=== PATIENT | female | born 1950 | race Caucasian/White ===

== ENCOUNTER 2018-06-16 18:37 | Inpatient (IN) | END 2018-06-21 17:44 | disposition home health service (06) | DRG 291 ==

== ENCOUNTER 2018-08-01 15:05 | Inpatient (IN) | payer OTHER ==
[~2018-08-01] VITALS: Ht 154.4 cm; Wt 46.4 kg
[~2018-08-01 15:05] MED LIST: ACET650T5 PO; AMIO100T4 PO; ATOR40TA68 PO; FAMO40TA5 PO; FOLI0.8T2 PO; HEPA500021 IJ; METO-448 PO; ONDA4TAB13 PO; [UNRECOGNIZED DRUG - CODE] IV
[2018-08-02 12:35] VITALS: BP 136/74; PULSE 67; RESP 20
[2018-08-02 12:52] VITALS: PULSE 67
[2018-08-02] MEDS ORDERED: ACETAMINOPHEN 325 MG TAB PO PRN (14:00)
[2018-08-02] MEDS ORDERED: NACL 0.9% 3 ML SYG IV SCH (14:00)
[2018-08-02] MEDS ORDERED: ONDANSETRON 4 MG INJ IV PRN (14:00)
[2018-08-02] MEDS ORDERED: HYDROCODONE/APAP (5/325) TAB PO PRN (14:00)
--- NOTE | 2018-08-02 14:07 | HP ---
Date/Time of Note Date/Time of Note DATE: 08/02/18 TIME: 13:49 Assessment/Plan VTE Prophylaxis Pharmacological prophylaxis: heparin Lines/Catheters Central line still needed: Yes Assessment/Plan Assessment/Plan 67 yo woman with ESRD on HD, paroxysmal A fib, stroke in January 2018, CHF, presents with abdominal pain likely from chronic L renal hematoma. #L perinephric hematoma - From renal biopsy done in [facility] early 2017. - s/p embolization and percutaneous drainage with subsequent re-formation of hematoma. - Now associated with chronic abdominal pain. - Last CT Jun 2018 dimensions were 24.6 x 8.0 x 9.8 cm. Will attempt to read Colton's CT, if unsuccessful will repeat study here. - If hematoma is not significantly increased in size then draining it will likely do more harm than benefit in this frail woman with many other comorbidities. - I discussed with the patient and that this may be a chronic pain she must deal with. - Acetaminophen prn pain, norco prn breakthrough. #A fib, paroxysmal - Currently in normal sinus. - Rhythm controlled on amiodarone and metoprolol, will continue. - Will hold anticoag in the setting of hematoma. In normal sinus her risk of stroke is very low. #CVA - Cont statin. Holding aspirin for now; if hematoma is not increased in size then will resume. #ESRD on HD - Consulted renal for routine HD. No indications for urgent HD. #CHF - Continue metoprolol - No evidence of exacerbation. #Chronic anemia of chronic disease - Ferritin Jun 2018 was 1600 - Cont epogen per renal. DVT: SCDs GI: H2 suad HPI/ROS Admit Date/Time Admit Date/Time Aug 02, 2018 at 11:09 Hx of Present Illness Ms. Apodaca is a 67 yo woman with history of CVA, ESRD on HD, and paroxysmal A fib transferred here from [facility] for a renal hematoma. The patient's history starts with a renal biopsy done at [facility] earlier this year. After the biopsy she developed a L perinephric hematoma. She underwent embolization and drainage of the hematoma, but it recurred. Last procedure done on the hematoma was in January. She has chronic abdominal pain which seems to be related to this hematoma. She cannot quantify the nature of the pain. She reports it as mild to moderate. It is not affected by eating. It does worsen when she tries to stand and walk. She says she hasn't tried OTC medi cations for the pain and does not know which meds in the hospital work. She was hospitalized here at [facility] 06/16-. At that time the hematoma measured 24.6 x 8.0 x 9.8 cm. A decision was made that draining this chronic hematoma would likely do more harm than good. She was discharged and otherwise was doing well, although she did still have the above abdominal pain. She then presented to [facility] with the same abdominal pain. A CT was done there. There was only an axial view I could find on the CT where it measured 8.0 x 9.0; I could not measure the sagittal axis. Currently the patient appears well, no other complaints. Vitals are stable and she is in normal sinus. ROS 12 point review of systems done, negative except per HPI. PMH/Family/Social Past Medical History Stroke January 12, 2018. ESRD on HD Paroxysmal A fib CHF Coded Allergies: No Known Allergy (Unverified , 06/17/18) Past Surgical History Renal biopsy complicated by perinephric hematoma in 2018. Social History Alcohol Use: none Smoking Status: Never smoker Drug Use: none Exam/Review of Systems Vital Signs Vitals Vital Signs Date Temp Pulse Resp B/P (MAP) Pulse Ox O2 O2 Flow FiO2 Time Delivery Rate 08/02/18 67 12:52 08/02/18 98.7 20 136/74 98 Room Air 12:35 (94) Exam Exam Gen: Thin appearing elderly woman in no acute distress Eyes: PERRL, no icterus Neuro: CN 2-12 grossly intact. No facial droop. Moving all extremities spontaneously. HEENT: Moist mucous membranes, clear oropharynx Neck: No lymphadenopathy, supple. Chest: R chest permacath in place. Card: Regular rate and rhythm, no murmurs Pulm: Clear to auscultation bilaterally. Abd: L mid abdominal tenderness to palpation. Also L flank tenderness. Otherwise soft, nondistended. Old suprapubic surgical scar. Ext: No cyanosis/clubbing/edema. LATHA LOPEZ MD Aug 02, 2018 14:00
[2018-08-02 15:13] VITALS: BP 140/67; PULSE 77; RESP 20
--- NOTE | 2018-08-02 15:34 | NUR ---
Nutrition Consult: ESRD on HD. Per family HD 3x/wk, has had good appetite at home. She has good acceptance of nutrition supplement offered at HD center. [facility]. Per family ambulates with walker 1+ assist. Recommend Renal diet with Novasource Renal Qd. Will monitor PO intake, wt. and labs.
[2018-08-02 15:45] VITALS: Ht 154.4 cm; Wt 46.4 kg
[2018-08-02 16:40] VITALS: PULSE 82
--- NOTE | 2018-08-02 17:55 | NUR ---
EOSS Patient directly admitted from [facility]. Stable. Vitals signs stable. Denies pain. Ambulatory with assistance. Family at bedside. Patient's last dialysis was on 08/01. Dr. Gurvinder Perez notified about the dialysis days and last dialysis. All needs attended.
[2018-08-02 19:36] VITALS: BP 141/71; PULSE 85; RESP 18
[2018-08-02 20:00] VITALS: PULSE 87
[2018-08-02] MEDS: FAMOTIDINE 20 MG TAB PO SCH (20:14)
[2018-08-02] MEDS: ATORVASTATIN 40 MG TAB PO SCH (20:14)
[2018-08-02] MEDS: METOPROLOL 25 MG TAB PO SCH (20:15)
[2018-08-02] MEDS: HEPARIN 5,000 UNIT/1 ML VIAL SC SCH (21:24)
[2018-08-03] VITALS (26 sets, daily range): BP systolic 127–159; BP diastolic 61–96; PULSE 67–88; RESP 16–20
[2018-08-03] MEDS ORDERED: EPOETIN 4000 UNITS/1 ML INJ (ESRD) SC SCH (08:00)
[2018-08-03] MEDS ORDERED: MULTIVIT/CA CARB/B CMPLX/FA TAB PO SCH (09:00)
[2018-08-03] MEDS: AMIODARONE 200 MG TAB PO SCH (09:34)
[2018-08-03] MEDS: MULTIVIT/CA CARB/B CMPLX/FA TAB PO SCH (09:34)
[2018-08-03] MEDS: SEVELAMER CARBONATE 800 MG TABLET PO SCH ×4 (09:35→22:06)
[2018-08-03] MEDS: METOPROLOL 25 MG TAB PO SCH ×2 (09:35→22:06)
[2018-08-03] MEDS: HEPARIN 5,000 UNIT/1 ML VIAL SC SCH ×2 (09:52→22:11)
[2018-08-03] MEDS ORDERED: SOD CHLORIDE 0.9% 100 ML ONE (09:58)
[2018-08-03] MEDS ORDERED: IOHEXOL 300MG/ML 150 ML BTL ONE (09:58)
--- NOTE | 2018-08-03 10:32 | NUR ---
confirmation # for today 08/03: [id number]
--- NOTE | 2018-08-03 10:45 | NUR ---
Procedure Ordered:CT ABD/PEL W/CONTRAST Reason for Exam Today:PERINEPHRIC HEMATOMA Previous Exams: Allergies:NKDA Current Medications Taken: Glucophage ( ) Metformin ( ) Previous reaction to contrast media: Yes ( ) No (X ) : Yes ( ) No (X ) Asthma: Yes ( ) No ( X) Diabetes: Yes ( ) No (X ) Myeloma: Yes ( ) No (X ) Heart Disease: Yes ( ) No ( X) Cardiac Disease: Yes ( ) No (X ) Kidney Disease: Yes ( X) No ( ) Vascular Disease: Yes ( ) No ( X) Patient Teaching done: Yes ( ) No ( ) Senior Bioinformatics Specialist Used: Yes ( ) No ( ) Name of Senior Bioinformatics Specialist: Language Used: As part of the test requested by your doctor, contrast media may be injected into your vein while the x-rays are being taken. Occasionally, reactions from IV contrast may occur. The physician and staff of this hospital are trained to treat these reactions. Select the type of Contrast that will be given to patient: Isovue 300 ( ) Isovue 370 ( ) Visipaque ( ) Cystografin ( ) OMNIPAQUE 300 Gastrographin ( ) Redi-cat ( ) Volumen ( ) Amount of contrast to be given: 75CC IV ( X) PO ( ) Date given:08/03/18 Lab Values: BUN: 34 Creatinine:3.27 HD LATER TODAY Reason why contrast cannot be given: Location of patient pre-procedure:[facility] Location of patient post procedure:[facility] 525 PT TOLERATED IV CONTRAST INJECTION WELL
--- NOTE | 2018-08-03 11:01 | PN ---
Date/Time of Note Date/Time of Note DATE: 08/03/18 TIME: 10:58 Assessment/Plan VTE Prophylaxis Risk score (from Nsg)>0 risk: 3 SCD applied (from Nsg): No SCD contraindicated: other (not contraindicated) Pharmacological prophylaxis: heparin Lines/Catheters IV Catheter Type (from Nrs): Saline Lock Assessment/Plan Assessment/Plan 67 yo woman with ESRD on HD, paroxysmal A fib, stroke in January 2018, CHF, presents with abdominal pain likely from chronic L renal hematoma. #L perinephric hematoma - From renal biopsy done in [facility] early 2017. - s/p embolization and percutaneous drainage with subsequent re-formation of hematoma. - Now associated with chronic abdominal pain, although not requiring any analgesia this hospitalization. - Last CT Jun 2018 dimensions were 24.6 x 8.0 x 9.[address] today. - If hematoma is not significantly increased in size then draining it will likely do more harm than benefit in this frail woman with many other comorbidities. - Acetaminophen prn pain, norco prn breakthrough; not requiring #A fib, paroxysmal - Currently in normal sinus. - Rhythm controlled on amiodarone and metoprolol, will continue. - Will hold anticoag in the setting of hematoma. In normal sinus her risk of stroke is very low. #CVA - Cont statin. Holding aspirin for now; if hematoma is not increased in size then will resume. #ESRD on HD - HD today. #CHF - Continue metoprolol - No evidence of exacerbation. #Chronic anemia of chronic disease - Ferritin Jun 2018 was 1600 - Cont epogen per renal. DVT: heparin GI: H2 suad Result Diagram: 08/03/18 0541 08/03/18 0541 Results 24hrs Laboratory Tests Test 08/03/18 05:41 White Blood Count 9.7 # Red Blood Count 2.84 #L Hemoglobin 8.2 #L Hematocrit 26.6 #L Mean Corpuscular Volume 93.7 Mean Corpuscular Hemoglobin 28.9 L Mean Corpuscular Hemoglobin Concent 30.8 L Red Cell Distribution Width 17.0 H Platelet Count 216 Mean Platelet Volume 9.3 Immature Granulocytes % 0.400 Neutrophils % 65.5 Lymphocytes % 25.7 Monocytes % 5.3 Eosinophils % 2.6 Basophils % 0.5 Nucleated Red Blood Cells % 0.0 Immature Granulocytes # 0.040 H Neutrophils # 6.4 Lymphocytes # 2.5 Monocytes # 0.5 Eosinophils # 0.3 Basophils # 0.1 Nucleated Red Blood Cells # 0.0 Sodium Level 137 Potassium Level 4.5 Chloride Level 99 Carbon Dioxide Level 24 Anion Gap 14 H Blood Urea Nitrogen 34 H Creatinine 3.27 H Est Glomerular Filtrat Rate mL/min 14 L Glucose Level 92 Hemoglobin A1c 5.2 Calcium Level 8.6 Phosphorus Level 5.9 H Magnesium Level 2.0 Iron Level 60 Total Iron Binding Capacity 133 L Percent Iron Saturation 45 Total Bilirubin 0.4 Direct Bilirubin 0.00 Indirect Bilirubin 0.4 Aspartate Amino Transf (AST/SGOT) 18 Alanine Aminotransferase (ALT/SGPT) 14 Alkaline Phosphatase 137 H Total Protein 6.7 Albumin 2.8 L Globulin 3.90 H Albumin/Globulin Ratio 0.71 Subjective 24 Hr Interval Summary Free Text/Dictation Abdominal pain well controlled. It actually is more bothersome when she is lying flat and improves when she stands and walks around. Ambulated patient in room with help from . She reported some dizziness and has trouble with balance. But was able to support her weight. Exam/Review of Systems Vital Signs Vitals Vital Signs Date Temp Pulse Resp B/P (MAP) Pulse Ox O2 O2 Flow FiO2 Time Delivery Rate 08/03/18 82 08:00 08/03/18 98.0 16 157/73 91 07:23 (101) 08/02/18 Room Air 15:13 Intake and Output 08/02/18 08/02/18 08/03/18 1515:00 23:00 07:00 IntakeIntake Total 300 ml BalanceBalance 300 ml Exam Gen: Thin appearing elderly woman in no acute distress Eyes: PERRL, no icterus HEENT: Moist mucous membranes, clear oropharynx Neck: No lymphadenopathy, supple. Chest: R chest permacath in place. Card: Regular rate and rhythm, no murmurs Pulm: Clear to auscultation bilaterally. Abd: L mid abdominal tenderness to deep palpation. No L flank tenderness. Otherwise soft, nondistended. Old suprapubic surgical scar. Ext: No cyanosis/clubbing/edema. Medications Medications Current Medications IV Flush (NS 3 ml) 3 ml PER PROTOCOL IV ; Start 08/02/18 at 14:00 Ondansetron HCl (Zofran Inj) 4 mg Q6H PRN IV NAUSEA AND/OR VOMITING; Start 12/25/18 at 14:00 Acetaminophen (Tylenol Tab) 650 mg Q6H PRN PO PAIN; Start 08/02/18 at 14:00 Acetaminophen/ Hydrocodone Bitart (Stuart (5/325)) 1 tab Q6H PRN PO BREAKTHROUGH PAIN; Start 08/02/18 at 14:00 Heparin Sodium (Porcine) (Heparin (5000 Units/1ml)) 5,000 unit Q12 SC Last administered on 08/03/18 09:52; Admin Dose 5,000 UNIT; Start 08/02/18 at 21:00 Amiodarone HCl (Cordarone) 200 mg DAILY PO Last administered on 08/03/18 09:34; Admin Dose 200 MG; Start 08/03/18 at 09:00 Atorvastatin Calcium (Lipitor) 40 mg QHS PO Last administered on 08/02/18 20:14; Admin Dose 40 MG; Start 08/02/18 at 21:00 Famotidine (Pepcid) 20 mg HS PO Last administered on 08/02/18 20:14; Admin Dose 20 MG; Start 08/02/18 at 21:00 Multivit/Ca Carb/ B Cmplx/FA/Prenat (Radha-Dimitrios) 1 tab DAILY PO Last administered on 08/03/18 09:34; Admin Dose 1 TAB; Start 08/03/18 at 09:00 Metoprolol Tartrate (Lopressor) 25 mg BID PO Last administered on 08/03/18 09:35; Admin Dose 25 MG; Start 08/02/18 at 21:00 Epoetin Serjio (Epogen (Esrd)) 8,000 units AFTER DIALYSIS SC ; Start 08/03/18 at 08:00 Sevelamer Carbonate (Renvela) 800 mg WITH MEALS PO Last administered on 07/10 09:35; Admin Dose 800 MG; Start 08/03/18 at 07:55 LATHA LOPEZ MD Aug 03, 2018 11:01
--- NOTE | 2018-08-03 11:20 | CONS ---
DATE OF ADMISSION: 08/02/2018 DATE OF CONSULTATION: 08/03/2018 NEPHROLOGY CONSULTATION REASON FOR CONSULTATION: End-stage renal disease. REQUESTING PHYSICIAN: Dr. Lopez. HISTORY OF PRESENT ILLNESS: This is a 67-year-old woman with a past medical history of end-stage lorna al disease on dialysis Wednesday, Wednesday, Wednesday with access of a Perm-A-Cath, patient's primary neph rologist is , history of CVA, history of AFib, who was transferred from [facility] to [facility] for a renal hematoma. The patient's history starts in [facility] earlier in the year when she had a biopsy. The patient developed a left perinephric hematoma. She underwent an embolization and drainage of hematoma, but it recurred. The patient then developed chronic abdominal pain related to underlying hematoma. The patient was previously hospitalized at [facility] in June. At that time, the hematoma measured 24 x 9 cm. The patient was subsequently discharged, but then presented back to [facility] with abdominal pain and a repeat CT scan was done. The patient was then transferred to [facility] for contin ued care. Upon my evaluation of the patient at this time, she is currently describing abdominal pain. She mya es any fevers, chills, nausea, vomiting. PAST MEDICAL HISTORY: History of end-stage renal disease, history of a hematoma, history of AFib, hi story of anemia, history of CVA, CHF. PAST SURGICAL HISTORY: Status post Perm-A-Cath placement, status post renal biopsy. FAMILY HISTORY: No family history of kidney disease. SOCIAL HISTORY: Does not drink, smoke or do drugs. MEDICATIONS: The patient's medications have been reviewed. ALLERGIES: NO KNOWN DRUG ALLERGIES. REVIEW OF SYSTEMS: A 14-point review of systems was conducted. Pertinent positives stated in HPI, o therwise negative. PHYSICAL EXAMINATION: VITAL SIGNS: Blood pressure is 157/73, respirations 16, pulse 80, temperature 98.0. HEENT: Head is normocephalic. NECK: Supple. HEART: Regular rate. LUNGS: Show diminished breath sounds at the base. ABDOMEN: The patient does have tenderness to palpation and left flank tenderness, CVA tenderness. EXTREMITIES: Negative for clubbing, cyanosis, no edema. DERMATOLOGIC: No rashes. MUSCULOSKELETAL: No joint effusion. NEUROLOGIC: No change in exam LABORATORY DATA: Shows white count 9.7, hemoglobin 8.2, platelet count 216. Sodium 137, potassium 4 .5, BUN 34, creatinine 3.27, phosphorus 5.9. IMAGING STUDIES: Reviewed. ASSESSMENT AND PLAN: This is a 67-year-old female who presents with: 1. End-stage renal disease. The patient is on dialysis Wednesday, Wednesday, Wednesday with access Perm-A -Cath. Plan is for dialysis today. Will dialyze for 3 hours, 3k bath, calcium 2.5, ultrafiltrate as tolerated. 2. Anemia. Monitor hemoglobin and hematocrit levels. Will check an iron panel. Will give Epogen w ith hemodialysis. 3. Mineral bone disorder. Monitor calcium and phosphorus levels. The patient will be started on ph os binders. 4. Paroxysmal atrial fibrillation. Currently normal sinus rhythm. Continue medical management. 5. History of cerebrovascular accident. Continue current treatment plan. 6. Left perinephric hematoma, chronic. Etiology is from initial renal biopsy. The patient is statu s post embolization and percutaneous drainage with reformation hematoma. At this point, continue to monitor. Follow up with urology. Thank you, Dr. Lopez, for this interesting consult. It will be a pleasure to follow the patient with you throughout the hospital course. Dictated By: TAN OBANDO DO NR/NTS Conf#: [id number] DID#: [id number] CC: LATHA LOPEZ MD;*EndCC*
--- NOTE | 2018-08-03 13:07 | NUR ---
Patient pending transfer to Med-Surg room 414B. Report given to Hill MELGOZA. Patient in stable condition, VSS, denies or discomfort pain at this time. All belongings returned to patient. engine monitor removed. Called and awaiting transport.
--- NOTE | 2018-08-03 13:53 | NUR ---
NURSE NOTE: Patient arrived from 5W. Patient skin assessed and noted healing stage 3 on sacrum area. Patient denied pain or nausea. Patient pending dialysis treatment.
[2018-08-03] MEDS ORDERED: HEPARIN 1000 UNITS/ML 10 ML INJ CATHETER SCH (15:00)
--- NOTE | 2018-08-03 15:04 | NUR ---
WOUND CARE CONSULTATION NOTE: 67 years old Female readmitted with shortness of breath. History of ESRD on HD, hypertension, [place], CVA with left-sided deficit, atrial fibrillation per medical history. Patient awake, alert, oriented. She is able to turn with minimal assist. Incontinent of bowel at times. ASSESSMENT: - Left sided sacrococcyx healing stage 3 pressure injury. Condition present on admission. [id number]. Shallow full thickness wound with pink/red epithelialized wound bed which is dry without drainage. Periwound pinkish resurfaced scar tissue. No odor. RECOMMENDATIONS: - Left aspect sacrococcyx stage 3: Cleanse with normal saline. Apply Venelex ointment BID. Then, cover with foam border dressing. - Pericare with barrier cream for each incontinent episode. - Low air loss surface. - Reposition every 2 hours. - Float heels off bed with pillows. Discussed assessment and plan of care with RHONA Freeman. RN to obtain wound care recommendations from . Claudette Eric, RN, MSN, CCRN, WCC
--- NOTE | 2018-08-03 19:11 | NUR ---
END OF SHIFT NOTE: Patient had dialysis today with 2 L output and was given epogen and provided education on that medication. Patient denied any pain throughout shift. Patient reported slight pain on left sided, but did not want medications. Patient's sacrum and heels photographed. Wound consult recommendations inputted. No other events noted.
[2018-08-03] MEDS: ATORVASTATIN 40 MG TAB PO SCH (22:06)
[2018-08-03] MEDS: FAMOTIDINE 20 MG TAB PO SCH (22:06)
[2018-08-04 00:10] VITALS: BP 129/72; PULSE 76; RESP 20
--- NOTE | 2018-08-04 05:42 | NUR ---
END OF SHIFT NOTES:Patient denies pain all night. Slept comfortably. No untoward s/sx noted. To continue plan of care
[2018-08-04 08:20] VITALS: BP 121/74; PULSE 72; RESP 19
[2018-08-04] MEDS: MULTIVIT/CA CARB/B CMPLX/FA TAB PO SCH (08:59)
[2018-08-04] MEDS: AMIODARONE 200 MG TAB PO SCH (08:59)
[2018-08-04] MEDS ORDERED: BALSAM PERU/CASTOR OIL 60 GM TUBE TOP SCH (09:00)
[2018-08-04] MEDS: METOPROLOL 25 MG TAB PO SCH (09:00)
[2018-08-04] MEDS: HEPARIN 5,000 UNIT/1 ML VIAL SC SCH (09:11)
--- NOTE | 2018-08-04 09:15 | PN ---
DATE: 08/04/2018 SUBJECTIVE: The patient is stable. The patient had hemodialysis yesterday, tolerated well. The pat ient continues to have abdominal pain and discomfort. No other events noted. OBJECTIVE: VITAL SIGNS: Blood pressure is 129/72, respirations 20, pulse 76, temperature 98.9. HEENT: Head is normocephalic. NECK: Supple. HEART: Regular rate. LUNGS: Show diminished breath sounds at the base. ABDOMEN: Soft, positive tender to palpation with left CVA tenderness. EXTREMITIES: Negative for clubbing, cyanosis, no edema. DERMATOLOGIC: No rashes. MUSCULOSKELETAL: No joint effusion. NEUROLOGIC: No change in exam. MEDICATIONS: The patient's medications have been reviewed. LABORATORY DATA: Shows a white count 9.6, hemoglobin 8.6, platelet count 245. Sodium 139, potassium 4.4, BUN 16, creatinine 2.07. IMAGING: Patient's CT scan of abdomen and pelvis was reviewed, shows a 7 x 15.3 cm retroperitoneal f luid collection, may be due to hematoma or abscess. ASSESSMENT AND PLAN: 1. End-stage renal disease. The patient is on dialysis Wednesday, Wednesday, Wednesday with access Perm-A -Cath. The patient had hemodialysis yesterday, tolerated well. Plan for dialysis again tomorrow. 2. Anemia. Continue to monitor hemoglobin and hematocrit levels. Will continue Epogen with dialysi s as needed. 3. Mineral bone disorder, monitor calcium and phosphorus levels. Will start phosphate binders as ne eded. 4. Paroxysmal atrial fibrillation, currently in sinus rhythm. Continue medical management. 5. Atrial fibrillation, left perinephric hematoma, chronic. The patient's CT scan was reviewed. Co ntinue to monitor, continue pain control, consider urologic evaluation. 6. History of cerebrovascular accident. Continue current treatment plan. Dictated By: TAN OBANDO DO NR/NTS Conf#: [id number] DID#: [id number] CC: LATHA LOPEZ MD;*EndCC*
--- NOTE | 2018-08-04 09:43 | NUR ---
Called Moon Polanco to [facility] for ivon 08/05 @ 0800. Spoked to Gail. Confirmation # [id number]
--- NOTE | 2018-08-04 09:49 | PDOCDIS ---
Discharge Instructions DIAGNOSIS Discharge Diagnosis L perinephric hematoma, stable CONDITION [id number] Patient Condition: [id number] Good HOME CARE INSTRUCTIONS: [id number] Special Diet: [id number] Renal Diet ACTIVITY: [id number] Activity Restrictions: [id number] No Restrictions FOLLOW UP/APPOINTMENTS Follow-up Plan 1. Take all medications as prescribed 2. Go to dialysis and see your machine repairer as scheduled. 3. For unbearable pain not responsive to tylenol or for intractable nausea and vomiting return to the emergency room. 4. See your primary care doctor prior to going on an international flight. LATHA LOPEZ MD Aug 04, 2018 09:49
--- NOTE | 2018-08-04 12:10 | NUR ---
JORDAN NOTES: MET WIT THE PT AT THE BEDSIDE AND . PRIOR TO THE ADMISSION, PT LIVED WITH FAMILY. OUTPT HD IS AT [facility] [phone] (O) F) [phone]. THIS CM T/C AND S/W HD LIAISON LYDIA REGARDING THE APPOINTMENT. CONFIRMED THE APPOINTMENT FOR WED, WED, WEDNESDAY AT 7:45AM. PLAN: DC HOME AND RESUME PREVIOUS OUTPT HD. ANUSHA JAMES CM [id number] Addendum: 08/04/18 at 1213 by ANUSHA KENYON CM Amended: Links added.
[2018-08-04] MEDS: SEVELAMER CARBONATE 800 MG TABLET PO SCH (13:01)
--- NOTE | 2018-08-04 16:47 | DS ---
Date/Time of Note Date/Time of Note DATE: 08/04/18 TIME: 16:42 Discharge Summary Admission/Discharge Info Admit Date/Time Aug 02, 2018 at 11:09 Discharge Date/Time Aug 04, 2018 at 15:45 Discharge Diagnosis L perinephric hematoma, stable Patient Condition: Good Consults Nephrology Procedures None Hx of Present Illness Ms. Apodaca is a 67 yo woman with history of CVA, ESRD on HD, and paroxysmal A fib transferred here from [facility] for a renal hematoma. The patient's history starts with a renal biopsy done at [facility] earlier this year. After the biopsy she developed a L perinephric hematoma. She underwent embolization and drainage of the hematoma, but it recurred. Last procedure done on the hematoma was in January. She has chronic abdominal pain which seems to be related to this hematoma. She cannot quantify the nature of the pain. She reports it as mild to moderate. It is not affected by eating. It does worsen when she tries to stand and walk. She says she hasn't tried OTC medications for the pain and does not know which meds in the hospital work. She was hospitalized here at [facility] 06/16-. At that time the hematoma measured 24.6 x 8.0 x 9.8 cm. A decision was made that draining this chronic hematoma would likely do more harm than good. She was discharged and otherwise was doing well, although she did still have the above abdominal pain. She then presented to [facility] with the same abdominal pain. A CT was done there. There was only an axial view I could find on the CT where it measured 8.0 x 9.0; I could not measure the sagittal axis. Currently the patient appears well, no other complaints. Vitals are stable and she is in normal sinus. Hospital Course For her ESRD, nephrology was consulted. She got one session of scheduled HD. Her abdominal pain was attributed to her perinephric hematoma which was large and somewhat tender on palpation. But it was little more than a nuisance to the patient, who actually did not require any analgesia including tylenol this hospital stay. A CT was done which showed a decrease in size of the mass. CT 08/03: 7.4 x 8.6 x 15.3 cm, US 06/17: 24.6 x 8.0 x 9.8 cm. A repeat drain of this hematoma would likely do more harm than benefit. Overall the patient tolerated diet, was ambulating, and overall feeling well at time of discharge. Home Meds Reported Medications 1/2 Normal Saline (Sodium Chloride) 250 Ml Iv.soln, 100 ML IV PRN for Dialysis- PRN 06/16/18 Folic Acid/Vitamin B Comp W-C (Renal Multivitamin Tablet) 0.8 Mg Tablet, 0.8 MG PO, TAB 06/16/18 Metoprolol Tartrate* (Lopressor*) 25 Mg Tab, 25 MG PO BID, #60 TAB 06/16/18 Famotidine* (Famotidine*) 40 Mg Tablet, 20 MG PO HS, #30 TAB 06/16/18 Atorvastatin* (Atorvastatin*) 40 Mg Tablet, 40 MG PO QHS, #30 TAB 06/16/18 Amiodarone Hcl* (Amiodarone Hcl*) 100 Mg Tablet, 100 MG PO DAILY, #30 TAB 06/16/18 Ondansetron Hcl* (Zofran*) 4 Mg Tab, 4 MG PO Q6H PRN for NAUSEA AND OR VOMITING, TAB 06/16/18 Acetaminophen (PAIN RELIEF) 650 Mg Tablet.er, 650 MG PO Q4 PRN for PAIN, TAB 06/16/18 Discontinued Reported Medications Heparin Sodium,Porcine/Pf (HEPARIN SOD 5,000 UNIT/ 0.5 ML) 5,000 Unit/0.5 Ml Vial, 1000 UNIT IJ AFTER DIALYSIS PRN for dialysis-PRN, VIAL 06/16/18 Follow-up Plan 1. Take all medications as prescribed 2. Go to dialysis and see your web methods developer as scheduled. 3. For unbearable pain not responsive to tylenol or for intractable nausea and vomiting return to the emergency room. 4. See your primary care doctor prior to going on an international flight. Primary Care Provider Time spent on discharge: > 30 minutes Pending Labs Laboratory Tests Test 08/04/18 04:31 White Blood Count 9.6 10^3/ul (4.8-10.8) Red Blood Count 2.96 10^6/ul (4.20-5.40) Hemoglobin 8.6 g/dl (12.0-16.0) Hematocrit 27.6 % (37.0-47.0) Mean Corpuscular Volume 93.2 fl (82.0-101.0) Mean Corpuscular Hemoglobin 29.1 pg (29.0-33.0) Mean Corpuscular Hemoglobin Concent 31.2 g/dl (32.0-37.0) Red Cell Distribution Width 17.8 % (11.5-14.5) Platelet Count 245 10^3/UL (140-415) Mean Platelet Volume 9.1 fl (7.4-10.4) Immature Granulocytes % 0.300 % (0.001-0.429) Neutrophils % 64.4 % (39.0-77.0) Lymphocytes % 25.6 % (15.0-51.0) Monocytes % 7.2 % (0.0-11.0) Eosinophils % 1.9 % (0.0-7.0) Basophils % 0.6 % (0.0-2.0) Nucleated Red Blood Cells % 0.0 /100WBC (0.0-0.0) Immature Granulocytes # 0.030 10^3/ul (0.0-0.031) Neutrophils # 6.2 10^3/ul (1.6-7.5) Lymphocytes # 2.5 10^3/ul (0.8-2.9) Monocytes # 0.7 10^3/ul (0.3-0.9) Eosinophils # 0.2 10^3/ul (0.0-0.5) Basophils # 0.1 10^3/ul (0.0-0.1) Nucleated Red Blood Cells # 0.0 10^3/ul (0.0-0.0) Sodium Level 139 mmol/L (135-144) Potassium Level 4.4 mmol/L (3.5-5.1) Chloride Level 100 mmol/L (97-110) Carbon Dioxide Level 30 mmol/L (21-31) Anion Gap 9 (5-13) Blood Urea Nitrogen 16 mg/dl (7-20) Creatinine 2.07 mg/dl (0.44-1.00) Est Glomerular Filtrat Rate mL/min 24 mL/min (>60) Glucose Level 89 mg/dl (70-220) Calcium Level 8.8 mg/dl (8.4-10.2) Phosphorus Level 3.7 mg/dl (2.5-4.9) Magnesium Level 2.0 mg/dl (1.7-2.5) Total Bilirubin 0.3 mg/dl (0.2-1.3) Direct Bilirubin 0.00 mg/dl (0.00-0.20) Indirect Bilirubin 0.3 mg/dl (0-1.1) Aspartate Amino Transf (AST/SGOT) 24 IU/L (15-46) Alanine Aminotransferase (ALT/SGPT) 16 IU/L (13-69) Alkaline Phosphatase 159 IU/L (42-121) Total Protein 7.5 g/dl (6.1-8.1) Albumin 3.1 g/dl (3.3-4.9) Globulin 4.40 g/dl (1.3-3.2) Albumin/Globulin Ratio 0.70 LATHA LOPEZ MD Aug 04, 2018 16:47
== END 2018-08-04 15:45 | disposition home or self-care (01) | DRG 698 ==
LOC: MERGE 08-02 11:09 → TEL 08-02 11:09 → MS1 08-03 12:47
PROVIDERS: ADMIT Internal Medicine; ATTEND Internal Medicine
PROC: 5A1D70Z Performance of Urinary Filtration, Intermittent, Less than 6 Hours Per Day (ICD-10-PCS; principal; 2018-08-03)
DX: S37.092A Other injury of left kidney, initial encounter (principal); N18.6 End stage renal disease; I48.0 Paroxysmal atrial fibrillation; Z79.01 Long term (current) use of anticoagulants; Z99.2 Dependence on renal dialysis; D63.8 Anemia in other chronic diseases classified elsewhere; Y84.8 Other medical procedures as the cause of abnormal reaction of the patient, or of later complication, without mention of misadventure at the time of the procedure; Y73.0 Diagnostic and monitoring gastroenterology and urology devices associated with adverse incidents; I50.9 Heart failure, unspecified
CPT/HCPCS: 74177; 80053; 82728; 83036; 83540; 83735; 84100; 85025; 87340; 90935; J1644; Q4081; Q9967

== ENCOUNTER 2018-08-08 11:17 | Inpatient (IN) | payer OTHER ==
[~2018-08-08] VITALS: Ht 154.9 cm; Wt 47.6 kg
[~2018-08-08 11:17] MED LIST changes: -HEPA500021 IJ
--- NOTE | 2018-08-08 11:51 | ERD ---
ER Documentation Chief Complaint Chief Complaint HPI 67-year-old woman complains of cough and fever times 2 days. She was discharged a few days ago after admission for CHF and atrial fibrillation with rapid ventricular rate. She denies chest pain, no vomiting or diarrhea, no blood per rectum or melena. HPI was limited but supplemented by reviewing past medical records and speaking to her who was also at the bedside. ROS All systems reviewed and are negative except as per history of present illness. Medications Home Meds Reported Medications Folic Acid/Vitamin B Comp W-C (Renal Multivitamin Tablet) 0.8 Mg Tablet, 0.8 MG PO, TAB 06/16/18 Metoprolol Tartrate* (Lopressor*) 25 Mg Tab, 25 MG PO BID, #60 TAB 06/16/18 Famotidine* (Famotidine*) 40 Mg Tablet, 20 MG PO HS, #30 TAB 06/16/18 Atorvastatin* (Atorvastatin*) 40 Mg Tablet, 40 MG PO QHS, #30 TAB 06/16/18 Amiodarone Hcl* (Amiodarone Hcl*) 100 Mg Tablet, 100 MG PO DAILY, #30 TAB 06/16/18 Ondansetron Hcl* (Zofran*) 4 Mg Tab, 4 MG PO Q6H PRN for NAUSEA AND OR VOMITING, TAB 06/16/18 Acetaminophen (PAIN RELIEF) 650 Mg Tablet.er, 650 MG PO Q4 PRN for PAIN, TAB 06/16/18 Discontinued Reported Medications 1/2 Normal Saline (Sodium Chloride) 250 Ml Iv.soln, 100 ML IV PRN for Dialysis- PRN 06/16/18 Heparin Sodium,Porcine/Pf (HEPARIN SOD 5,000 UNIT/ 0.5 ML) 5,000 Unit/0.5 Ml Vial, 1000 UNIT IJ AFTER DIALYSIS PRN for dialysis-PRN, VIAL 06/16/18 Allergies Allergies: Coded Allergies: No Known Allergy (Unverified , 08/08/18) PMhx/Soc CVA, ESRD on HD, and paroxysmal A fib, hypertension History of Surgery: Yes (Angiogram 09/30, 08/26, 09/10, 01/12 2018, Cath placement 02/23, Endoscopy 10/22) Anesthesia Reaction: No Hx Neurological Disorder: Yes (CVA January 2018 w/deficits) Hx Respiratory Disorders: Yes (Current pulm edema/PNA) Hx Cardiac Disorders: No (HTN, aortic atherosclerosis, ND, CVA) Hx Psychiatric Problems: No Hx Miscellaneous Medical Probl: Yes (ESRD, HD mwf, anemia) Hx Alcohol Use: No Hx Substance Use: No Hx Tobacco Use: No Physical Exam Vitals Vital Signs Date Temp Pulse Resp B/P (MAP) Pulse Ox O2 O2 Flow FiO2 Time Delivery Rate 08/08/18 98.3 96 20 110/86 99 Room Air 13:43 (94) 08/08/18 83 20 95 21 12:44 08/08/18 Nasal 12:23 Cannula 08/08/18 Nasal 12:18 Cannula 08/08/18 100.6 107 24 150/73 98 11:23 (98) Physical Exam Const: Dyspneic, febrile HEENT: Dry mucous membranes Resp: Poor breath sounds bilaterally, wheezes bilaterally, crackles at the bases Cardio: Tachycardic and regular Abd: Soft, non tender, non distended. No masses palpated, no guarding, no rigidity Skin: No petechiae or rashes Back: No midline or flank tenderness Ext: No cyanosis, or edema, calves bilaterally symmetrical Neur: Awake and alert x3, no focal deficits or facial asymmetry Psych: Normal Mood and Affect Result Diagram: 08/08/18 1313 08/08/18 1313 Results 24 hrs Laboratory Tests Test 08/08/18 12:05 08/08/18 13:13 08/08/18 13:15 Blood Gas Specimen Blood arterial Source Arterial Blood Date 08/08/2018 12:50:21 PM Drawn Arterial Blood pH 7.503 (Temp corrected) Arterial Blood pCO2 33.1 mmhg (Temp correct) Arterial Blood pO2 166.7 mmHG (Temp corrected) Arterial Blood HCO3 25.4 mmol/L Arterial Blood Base 2.5 mmol/L Excess Arterial Blood 99.0 mmHG Oxygen Saturation Luis Test ACCEPTAB Arterial Blood Gas Right Radial Puncture Site Arterial 1.1 % Blood Carboxyhemoglobin Arterial Blood 0.2 % Methemoglobin Blood Gas A-a O2 80.4 mmHg Differential Oxyhemoglobin Percent 97.7 % Blood Gas Temperature 37.0 C Blood Gas Actual 22 Respiration Rate Blood Gas Modality MASK - SIMPLE FiO2 40.0 % Blood Gas Notified Whom GIFTY GIMENEZ Blood Gas Notified Time 08/08/2018 1:10:39 PM White Blood Count 10.1 10^3/ul Red Blood Count 2.94 10^6/ul Hemoglobin 8.7 g/dl Hematocrit 28.0 % Mean Corpuscular Volume 95.2 fl Mean Corpuscular 29.6 pg Hemoglobin Mean Corpuscular 31.1 g/dl Hemoglobin Concent Red Cell Distribution 19.6 % Width Platelet Count 189 10^3/UL Mean Platelet Volume 9.3 fl Immature Granulocytes % 0.400 % Neutrophils % 54.5 % Lymphocytes % 34.0 % Monocytes % 9.8 % Eosinophils % 0.9 % Basophils % 0.4 % Nucleated Red Blood 0.2 /100WBC Cells % Immature Granulocytes # 0.040 10^3/ul Neutrophils # 5.5 10^3/ul Lymphocytes # 3.4 10^3/ul Monocytes # 1.0 10^3/ul Eosinophils # 0.1 10^3/ul Basophils # 0.0 10^3/ul Nucleated Red Blood 0.0 10^3/ul Cells # Prothrombin Time 14.5 Sec Prothrombin Time Ratio 1.1 INR International 1.12 Normalized Ratio Activated 33.2 Sec Partial Thromboplast Time Sodium Level 137 mmol/L Potassium Level 4.6 mmol/L Chloride Level 97 mmol/L Carbon Dioxide Level 29 mmol/L Anion Gap 11 Blood Urea Nitrogen 36 mg/dl Creatinine 2.85 mg/dl Est Glomerular Filtrat 17 mL/min Rate mL/min Glucose Level 110 mg/dl Calcium Level 8.7 mg/dl Total Bilirubin 0.4 mg/dl Direct Bilirubin 0.00 mg/dl Indirect Bilirubin 0.4 mg/dl Aspartate Amino 35 IU/L Transf (AST/SGOT) Alanine 10 IU/L Aminotransferase (ALT/SG PT) Alkaline Phosphatase 143 IU/L Troponin I 0.089 ng/ml Total Protein 7.9 g/dl Albumin 3.5 g/dl Globulin 4.40 g/dl Albumin/Globulin Ratio 0.79 Lipase 327 U/L Free Thyroxine 2.19 ng/dl POC Venous Lactate 0.9 mmol/L Current Medications Medications Dose Sig/Polina Start Time Status Last (Trade) Ordered Route PRN Stop Time Admin Dose Reason Admin Albuterol 10 mg ONCE STAT 08/08/18 DC 08/08/18 (Proventil INH 12:05 12:35 0.5% (Neb)) 08/08/18 12:07 Sodium 500 ml BOLUS OVER 2 08/08/18 DC 08/08/18 Chloride HOURS STAT 12:05 13:23 (NS) IV* 08/08/18 12:07 Cefepime HCl 50 ml @ ONCE ONCE 08/08/18 DC 08/08/18 100 mls/hr IVPB 12:30 13:21 08/08/18 12:59 Ibuprofen 600 mg ONCE ONCE 08/08/18 DC 08/08/18 (Motrin) PO 12:30 13:22 08/08/18 12:31 Azithromycin 250 ml @ ONCE ONCE 08/08/18 DC 08/08/18 250 mls/hr IVPB 13:30 15:02 08/08/18 14:29 Procedures/MDM IV line was established patient was placed on rn cardiac cath rhythm strip revealed a sinus rhythm at about 80 bpm with upright P and T waves. Patient was febrile blood and respiratory cultures have been ordered results are pending I will follow-up. EKG performed, read by me: 89 bpm, normal sinus rhythm, normal axis, no acute ST segment changes, narrow QRS complex, with good R-wave progression in precordial leads. 1 view chest x-ray performed, read by me reveals cardiomegaly and left lower lobe infiltrate, hemodialysis catheter in the right chest I administered ibuprofen 600 mg p.o., albuterol 10 mg via nebulizer for cough, 500 mL normal saline IV x1, and cefepime 1 g IV. Patient also received azithromycin 500 mg IV x1. CBC reveals anemia with a hemoglobin of 8.7, electrolytes reveals chronic kidney disease, lactic acid level low, liver function tests normal, troponin negative ABG performed, read by me reveals a pH of 7.50, PCO2 33, PaO2 170. Respiratory alkalosis Patient admitted to telemetry setting. Departure Diagnosis: Primary Impression: Pneumonia Pneumonia type: due to unspecified organism Laterality: left Lung location: lower lobe of lung Qualified Codes: J18.1 - Lobar pneumonia, unspecified organism Additional Impressions: End stage kidney disease CHF (congestive heart failure) Heart failure type: systolic Heart failure chronicity: acute Qualified Codes: I50.21 - Acute systolic (congestive) heart failure Anemia in chronic kidney disease Chronic kidney disease stage: stage 3 (moderate) Qualified Codes: N18.3 - Chronic kidney disease, stage 3 (moderate); D63.1 - Anemia in chronic kidney disease Condition: JUVENTINO Ruiz MD Aug 08, 2018 11:51
[2018-08-08] MEDS ORDERED: SODIUM CHLORIDE 0.9% 1L BAG IV* STA (12:05)
[2018-08-08] MEDS ORDERED: ALBUTEROL 0.5% (NEB) 2.5 MG/0.5 ML AMP INH STA (12:05)
[2018-08-08] MEDS ORDERED: CEFEPIME 1GM/50 ML (PMX) 50 ML IVPB ONE (12:30)
[2018-08-08] MEDS ORDERED: IBUPROFEN 600 MG TAB PO ONE (12:30)
[2018-08-08] MEDS ORDERED: AZITHROMYCIN 500MG/NS (PMX) 250 ML IVPB ONE (13:30)
[2018-08-08] MEDS ORDERED: DOCUSATE SODIUM 100 MG CAP PO PRN (14:30)
[2018-08-08] MEDS ORDERED: hydrALAzine 20 MG INJ IV PRN (14:30)
[2018-08-08] MEDS ORDERED: MAGNESIUM HYDROXIDE 30ML CUP PO PRN (14:30)
[2018-08-08] MEDS ORDERED: morphine 2 MG INJ IV PRN (14:30)
[2018-08-08] MEDS ORDERED: LORAZEPAM 2 MG INJ IV PRN (14:30)
[2018-08-08] MEDS ORDERED: NITROGLYCERIN (SL) 0.4 MG TAB SL PRN (14:30)
[2018-08-08] MEDS ORDERED: ACETAMINOPHEN 325 MG TAB PO PRN (14:30)
[2018-08-08] MEDS ORDERED: HYDROCODONE/APAP (5/325) TAB PO PRN (14:30)
[2018-08-08] MEDS ORDERED: NACL 0.9% 3 ML SYG IV SCH (14:30)
[2018-08-08] MEDS ORDERED: ONDANSETRON 4 MG INJ IV PRN (14:30)
--- NOTE | 2018-08-08 14:40 | CONS ---
Date/Time of Note Date/Time of Note DATE: 08/08/18 TIME: 14:39 Assessment/Plan Assessment/Plan Assessment/Plan 1. Shortness of breath and fever: 2. ESRD on HD MWF schedule 3. H/o Atrial fibrillation 4. H/o HTN 5. H/o CHF 6. H/o HL 7. H/o Previous CVA Plan: HD was ordered for today but pt refused becasue she said she had a HD yesterday at [facility] BP [facility] IV abx zosyn + azithromycin will keep pt on MWF dialysis schedule seen in ED, will follow up on the floor Thanks for consultation, I will follow up Result Diagram: 08/08/18 1313 08/08/18 1313 Results 24hrs Laboratory Tests Test 08/08/18 12:05 08/08/18 13:13 08/08/18 13:15 Blood Gas Specimen Blood arterial Source Arterial Blood Date 08/08/2018 12:50:21 PM Drawn Arterial Blood pH 7.503 H (Temp corrected) Arterial Blood pCO2 33.1 L (Temp correct) Arterial Blood pO2 166.7 H (Temp corrected) Arterial Blood HCO3 25.4 Arterial Blood Base 2.5 Excess Arterial Blood 99.0 H Oxygen Saturation Luis Test ACCEPTAB Arterial Blood Gas Right Radial Puncture Site Arterial 1.1 Blood Carboxyhemoglobin Arterial Blood 0.2 Methemoglobin Blood Gas A-a O2 80.4 H Differential Oxyhemoglobin Percent 97.7 Blood Gas Temperature 37.0 Blood Gas Actual 22 Respiration Rate Blood Gas Modality MASK - SIMPLE FiO2 40.0 Blood Gas Notified Whom GIFTY GIMENEZ Blood Gas Notified Time 08/08/2018 1:10:39 PM White Blood Count 10.1 Red Blood Count 2.94 L Hemoglobin 8.7 L Hematocrit 28.0 L Mean Corpuscular Volume 95.2 Mean Corpuscular 29.6 Hemoglobin Mean Corpuscular 31.1 L Hemoglobin Concent Red Cell Distribution 19.6 H Width Platelet Count 189 # Mean Platelet Volume 9.3 Immature Granulocytes % 0.400 Neutrophils % 54.5 Lymphocytes % 34.0 Monocytes % 9.8 Eosinophils % 0.9 Basophils % 0.4 Nucleated Red Blood 0.2 H Cells % Immature Granulocytes # 0.040 H Neutrophils # 5.5 Lymphocytes # 3.4 H Monocytes # 1.0 H Eosinophils # 0.1 Basophils # 0.0 Nucleated Red Blood 0.0 Cells # Prothrombin Time 14.5 Prothrombin Time Ratio 1.1 INR International 1.12 Normalized Ratio Activated 33.2 Partial Thromboplast Time Sodium Level 137 Potassium Level 4.6 Chloride Level 97 Carbon Dioxide Level 29 Anion Gap 11 Blood Urea Nitrogen 36 H Creatinine 2.85 H Est Glomerular Filtrat 17 L Rate mL/min Glucose Level 110 Calcium Level 8.7 Total Bilirubin 0.4 Direct Bilirubin 0.00 Indirect Bilirubin 0.4 Aspartate Amino 35 Transf (AST/SGOT) Alanine 10 L Aminotransferase (ALT/SG PT) Alkaline Phosphatase 143 H Troponin I 0.089 Total Protein 7.9 Albumin 3.5 Globulin 4.40 H Albumin/Globulin Ratio 0.79 Lipase 327 H POC Venous Lactate 0.9 Consultation Date/Type/Reason Admit Date/Time 08/08/18 Date of Consultation: Aug 08, 2018 Type of Consult NEPHROLOGY Reason for Consultation ESRD on HD with shortness of breath Requesting Provider: LAURA SOTO Hx of Present Illness 67-year-old female with past medical history of mild stroke, recent renal hematoma, atrial fibrillation, CHF, end-stage renal disease on dialysis, questionable UT in the past who presents with shortness of breath symptoms. She has been also having some cough at home. Symptoms are going on for the last 2 days. The patient was last here at our hospital from 08/02/2018 to 08/04/2018. At that time, she was treated for left perinephric hematoma. At this time however because of her shortness of breath symptoms, she decided to come into the ER. When she came in to the ER today, she was found with a temperature of 100.6 and chest x-ray showed in the ER evaluation today showed double lumen right venous catheter access, stable position with the tip projecting into the right atrium, persistent mild cardiomegaly with pulmonary vasculature mildly, but less congested improving, diffuse bilateral now largely interstitial infiltrate suspicious for improving pulmonary edema. No effusion is present and there is serpiginous calcific density again projects into the left upper abdomen, which previous CT appears to represent embolic material within the left renal artery. pt had her schedule wednesday dialysis on Wednesday this time Renal has been consulted for maintiance HD Constitutional: no complaints Eyes: no complaints ENT: no complaints Respiratory: pleuritic pain, shortness of breath Cardiovascular: no complaints Gastrointestinal: no complaints Genitourinary: no complaints Musculoskeletal: no complaints Skin: no complaints Neurologic: no complaints Endocrine: no complaints Lymphatic: no complaints Psychological: no complaints Immunologic: no complaints Past Medical History Medical History: congestive heart failure, high cholesterol, hypertension, renal disease, other (ESRD oN HD ) Medications Current Medications IV Flush (NS 3 ml) 3 ml PER PROTOCOL IV ; Start 08/08/18 at 14:30; Status UNV Ondansetron HCl (Zofran Inj) 4 mg Q6H PRN IV NAUSEA AND/OR VOMITING; Start 08/08/18 at 14:30; Status UNV Acetaminophen (Tylenol Tab) 650 mg Q6H PRN PO PAIN LEVEL 1-3 OR FEVER; Start 08/08/18 at 14:30; Status UNV Acetaminophen/ Hydrocodone Bitart ([place] (5/325)) 1 tab Q6H PRN PO MODERATE PAIN LEVEL 4-6; Start 08/08/18 at 14:30; Status UNV Morphine Sulfate (morphine) 2 mg Q4H PRN IV SEVERE PAIN LEVEL 7-10; Start 08/08/18 at 14:30; Status UNV Docusate Sodium (Colace) 100 mg Q12H PRN PO CONSTIPATION; Start 08/08/18 at 14:30; Status UNV Magnesium Hydroxide (Milk Of Mag) 30 ml DAILY PRN PO CONSTIPATION; Start 08/08/18 at 14:30; Status UNV Lorazepam (Ativan) 0.5 mg Q6H PRN IV ANXIETY; Start 08/08/18 at 14:30; Status UNV Albuterol/ Ipratropium (Duoneb) 3 ml Q4H RESP THERAPY PRN HHN SHORTNESS OF BREATH; Start 08/08/18 at 14:30; Status UNV Piperacillin Sod/ Tazobactam Sod 100 ml @ 200 mls/hr Q6 IVPB ; Start 08/08/18 at 18:00; Status UNV Hydralazine HCl (Apresoline) 10 mg Q6H PRN IV ELEVATED BLOOD PRESSURE; Start 08/08/18 at 14:30; Status UNV Clonidine (Catapres) 0.1 mg Q6H PRN PO ELEVATED BLOOD PRESSURE; Start 08/08/18 at 14:30; Status UNV Nitroglycerin (Nitroglycerin (Sl Tab) 0.4 Mg) 1 tab Q5M PRN SL ANGINA; Start 08/08/18 at 14:30; Status UNV Amiodarone HCl (Cordarone) 100 mg DAILY PO ; Start 08/09/18 at 09:00; Status UNV Atorvastatin Calcium (Lipitor) 40 mg QHS PO ; Start 08/08/18 at 21:00; Status UNV Famotidine (Pepcid) 20 mg HS PO ; Start 08/08/18 at 21:00; Status UNV Metoprolol Tartrate (Lopressor) 25 mg BID PO ; Start 08/08/18 at 21:00; Status UNV Allergies: Coded Allergies: No Known Allergy (Unverified , 08/08/18) Past Surgical History Past Surgical Hx: other (Permacath for HD access ) Family History Significant Family History: no pertinent family hx Social History Alcohol Use: none Drug Use: none Exam/Review of Systems Vital Signs Vitals Vital Signs Date Temp Pulse Resp B/P (MAP) Pulse Ox O2 O2 Flow FiO2 Time Delivery Rate 08/08/18 98.3 96 20 110/86 99 Room Air 13:43 (94) 08/08/18 21 12:44 Exam Constitutional: alert Psych: no complaints Head: normocephalic Eyes: nl conjunctiva ENMT: nl external ears & nose Neck: supple, non-tender Respiratory: clear to auscultation, normal air movement, diminished breath sounds Cardiovascular: regular rate and rhythm, nl pulses Gastrointestinal: soft, non-tender Musculoskeletal: nl extremities to inspection, muscle weakness, swelling Extremities: normal pulses Neurological: AUDIO OPERATOR II-XII intact, nl mental status, nl speech, nl strength Skin: nl turgor Lymph: nl lymph nodes Medications Medications Current Medications IV Flush (NS 3 ml) 3 ml PER PROTOCOL IV ; Start 08/08/18 at 14:30; Status UNV Ondansetron HCl (Zofran Inj) 4 mg Q6H PRN IV NAUSEA AND/OR VOMITING; Start 08/08/18 at 14:30; Status UNV Acetaminophen (Tylenol Tab) 650 mg Q6H PRN PO PAIN LEVEL 1-3 OR FEVER; Start 08/08/18 at 14:30; Status UNV Acetaminophen/ Hydrocodone Bitart ([place] (5/325)) 1 tab Q6H PRN PO MODERATE PAIN LEVEL 4-6; Start 08/08/18 at 14:30; Status UNV Morphine Sulfate (morphine) 2 mg Q4H PRN IV SEVERE PAIN LEVEL 7-10; Start 08/08/18 at 14:30; Status UNV Docusate Sodium (Colace) 100 mg Q12H PRN PO CONSTIPATION; Start 08/08/18 at 14 :30; Status UNV Magnesium Hydroxide (Milk Of Mag) 30 ml DAILY PRN PO CONSTIPATION; Start 08/08/18 at 14:30; Status UNV Lorazepam (Ativan) 0.5 mg Q6H PRN IV ANXIETY; Start 08/08/18 at 14:30; Status UNV Albuterol/ Ipratropium (Duoneb) 3 ml Q4H RESP THERAPY PRN HHN SHORTNESS OF BREATH; Start 08/08/18 at 14:30; Status UNV Piperacillin Sod/ Tazobactam Sod 100 ml @ 200 mls/hr Q6 IVPB ; Start 08/08/18 at 18:00; Status UNV Hydralazine HCl (Apresoline) 10 mg Q6H PRN IV ELEVATED BLOOD PRESSURE; Start 08/08/18 at 14:30; Status UNV Clonidine (Catapres) 0.1 mg Q6H PRN PO ELEVATED BLOOD PRESSURE; Start 08/08/18 at 14:30; Status UNV Nitroglycerin (Nitroglycerin (Sl Tab) 0.4 Mg) 1 tab Q5M PRN SL ANGINA; Start 08/08/18 at 14:30; Status UNV Amiodarone HCl (Cordarone) 100 mg DAILY PO ; Start 08/09/18 at 09:00; Status UNV Atorvastatin Calcium (Lipitor) 40 mg QHS PO ; Start 08/08/18 at 21:00; Status UNV Famotidine (Pepcid) 20 mg HS PO ; Start 08/08/18 at 21:00; Status UNV Metoprolol Tartrate (Lopressor) 25 mg BID PO ; Start 08/08/18 at 21:00; Status UNV GEORGIE OMER MD Aug 08, 2018 14:40
[2018-08-08] MEDS ORDERED: SODIUM CHLORIDE 0.9% 1L BAG IV PRN (15:00)
[2018-08-08] MEDS ORDERED: ALBUMIN HUMAN 25% 50 ML IV PRN (15:00)
[2018-08-08] MEDS ORDERED: HEPARIN 1000 UNITS/ML 10 ML INJ CATHETER SCH (15:00)
[2018-08-08 15:26] VITALS: PULSE 101
[2018-08-08 15:34] VITALS: Ht 154.9 cm; Wt 47.6 kg
[2018-08-08 16:22] VITALS: PULSE 91
--- NOTE | 2018-08-08 16:57 | HP ---
DATE OF ADMISSION: 08/08/2018 CHIEF COMPLAINT: Shortness of breath. HISTORY OF PRESENT ILLNESS: A 67-year-old female with past medical history of mild stroke, recent renal hematoma, atrial fibrillation, CHF, end-stage renal disease on dialysis, questionable [place] in the past who presents with shortness of breath symptoms. She has been also having some cough at home. Symptoms are going on for the last 2 days. Denies any upper or lower GI bleeding. No overt fevers or chills. No nausea, vomiting. No diarrhea or constipation. No headaches or dizziness or loss of consciousness. The patient was last here at our hospital from 08/02/2018 to 08/04/2018. At that time, she was treated for left perinephric hematoma. At this time however because of her shortness of breath symptoms, she decided to come into the ER. When she came in to the ER today, she was found with a temperature of 100.6 and chest x-ray showed in the ER evaluation today showed double lumen right venous catheter access, stable position with the tip projecting into the right atrium, persistent mild cardiomegaly with pulmonary vasculature mildly, but less congested improving, diffuse bilateral now largely interstitial infiltrate suspicious for improving pulmonary edema. No effusion is present and there is serpiginous calcific density again projects into the left upper abdomen, which previous CT appears to represent embolic material within the left renal artery. So overall, there were signs of possible upper respiratory infection and she received broad-spectrum antibiotics in the ER today along with a breathing treatment and IV fluid bolus per family. Her last dialysis was as an outpatient 24 hours ago. PAST MEDICAL HISTORY: As above. ALLERGIES: NO KNOWN DRUG ALLERGIES. HOME MEDICINES: 1. Amiodarone 100 mg daily. 2. Atorvastatin 40 mg at bedtime. 3. Lopressor 25 mg b.i.d. 4. Tylenol p.r.n. 5. Famotidine 20 mg at bedtime. 6. Zofran 4 mg q.6 p.r.n. 7. Renal multivitamin tablet 0.8 mg. PAST SURGICAL HISTORY: She had an angiogram in the past, PermCath placement in the past. SOCIAL HISTORY: Negative for smoking, drinking or IV drug abuse. FAMILY HISTORY: Noncontributory. PHYSICAL EXAMINATION: VITAL SIGNS: T-max 100.6, pulse 83 to 107, respirations 20 to 24, blood pressure 110 to 150 systolic over 86 to 73 diastolic, satting at 99% present on room air. GENERAL: The patient is lying in bed, family members at the bedside, in no acute distress. HEENT: Pupils are equal, round, react to light. Mild dry mucous membranes. Otherwise, extraocular muscles are intact. NECK: Supple. No thyromegaly. LUNGS: Slightly decreased breath sounds bilaterally. Positive mild expiratory wheezes heard at the bases bilaterally and mild crackles heard at the bases bilaterally. CARDIOVASCULAR: S1, S2 heard. No rubs or gallops. ABDOMEN: Soft, nontender, nondistended. Normal bowel sounds. No rebound or guarding. MUSCULOSKELETAL: No lower extremity edema bilaterally. NEUROLOGIC: No focal deficits. LABORATORIES: CBC is completely normal. The sodium is 137, potassium 4.6, chloride 97, CO2 of 29, BUN 36, creatinine 2.85, glucose 110. The LFTs are essentially normal. Troponin is negative x1. Lipase is little high at 327. Coags appear to be normal. ABG today showed pH of 7.50, pCO2 of 33, PaO2 of 166, bicarbonate of 25.4. DIAGNOSTIC DATA: Chest x-ray: As mentioned. ASSESSMENT AND PLAN: 67-year-old female coming in with shortness of breath and fevers for 2 days with signs of upper respiratory infection. 1. Shortness of breath and fever: Again given chest x-ray findings, signs of possible mild pulmonary vascular congestion and mild infiltrates, so overall upper respiratory infection in the patient, put on broad spectrum antibiotics, Tylenol p.r.n. pain and fevers. Consider low-dose IV fluids. Check TSH, A1c and lipid panel. 2. History of atrial fibrillation. Continue to monitor heart rate on current heart monitor floor. Continue amiodarone and metoprolol for now. 3. History of end-stage renal disease on dialysis. We will get a renal consult. 4. History of prior stroke. No present issues. Continue to monitor for now. 5. History of congestive heart failure. Continue current cardiac medications. 6. Gastrointestinal prophylaxis. Pepcid. 7. Deep venous thrombosis prophylaxis. Heparin subcutaneous. Dictated By: LAURA JACKMAN Conf#: [id number] DID#: [id number] CC: GEORGIE OMER MD;*EndCC* MTDD
--- NOTE | 2018-08-08 17:47 | NUR ---
END OF SHIFT ADMITTED TO TELEMETRY, DENIES PAIN, FAMILY VISITING AT BEDSIDE, ABLE TO CALL FOR ASSIST, STABLE FOR HANDOFF CURRENTLY
[2018-08-08] MEDS: PIPER-TAZO 3.375 GM IV (PMX) 100 ML IVPB SCH (17:48)
[2018-08-08] MEDS ORDERED: PIPER-TAZO 3.375 GM IV (PMX) 100 ML IVPB SCH (18:00)
[2018-08-08 20:00] VITALS: BP 88/55; PULSE 79; PULSE 82; RESP 17
[2018-08-08] MEDS: METOPROLOL 25 MG TAB PO SCH (20:32)
[2018-08-08] MEDS ORDERED: FAMOTIDINE 20 MG TAB PO SCH (21:00)
[2018-08-08] MEDS ORDERED: ATORVASTATIN 40 MG TAB PO SCH (21:00)
[2018-08-08 23:24] VITALS: BP 86/53; PULSE 70; RESP 16
[2018-08-09] VITALS (7 sets, daily range): BP systolic 98–108; BP diastolic 53–65; PULSE 70–82; RESP 18
[2018-08-09] MEDS: PIPER-TAZO 3.375 GM IV (PMX) 100 ML IVPB SCH (04:13)
--- NOTE | 2018-08-09 06:42 | NUR ---
End of shift notes: Vital signs remains stable.SR on the monitor. Ambulates to the bathroom with assist. On antibiotics. Needs attended. Will continue to monitor. Orders reviewed and acknowledged. Addendum: 08/09/18 at 0653 by LOYD SOFIA RN For dialysis today.
[2018-08-09] MEDS: METOPROLOL 25 MG TAB PO SCH (08:53)
[2018-08-09] MEDS ORDERED: AMIODARONE 200 MG TAB PO SCH (09:00)
[2018-08-09] MEDS: ALBUTEROL/IPRATROPIUM (NEB) 3 ML AMP HHN PRN ×2 (09:37→13:39)
--- NOTE | 2018-08-09 12:46 | PDOCDIS ---
Discharge Instructions CONDITION [id number] Patient Condition: [id number] Stable HOME CARE INSTRUCTIONS: [id number] Diet Instructions: [id number] Low Fat /Cholesterol ACTIVITY: [id number] Activity Restrictions: [id number] Slowly Increase Activity Rest between Activity Avoid heavy lifting FOLLOW UP/APPOINTMENTS Follow-up Plan Please take your medications as prescribed. Please see your doctor in the clinic in the next 1 week. LAURA SOTO Aug 09, 2018 12:45
[2018-08-09] MEDS ORDERED: LEVO750T25 PO (12:47)
--- NOTE | 2018-08-09 12:50 | DS ---
Date/Time of Note Date/Time of Note DATE: 08/09/18 TIME: 12:48 Discharge Summary Admission/Discharge Info Admit Date/Time Aug 08, 2018 at 14:25 Discharge Date/Time Discharge Diagnosis 1. Shortness of breath and fever: Secondary to mild upper respiratory infecti on, improving on antibiotics 2. History of atrial fibrillation. Continue amiodarone and metoprolol for now. 3. History of end-stage renal disease on dialysis 3 times a week 4. History of prior stroke. 5. History of congestive heart failure. Continue current cardiac medications. Patient Condition: Stable Hx of Present Illness 67-year-old female with past medical history of mild stroke, recent renal hematoma, atrial fibrillation, CHF, end-stage renal disease on dialysis, questionable [place] in the past who presents with shortness of breath symptoms. She has been also having some cough at home. Symptoms are going on for the last 2 days. Denies any upper or lower GI bleeding. No overt fevers or chills. No nausea, vomiting. No diarrhea or constipation. No headaches or dizziness or loss of consciousness. The patient was last here at our hospital from 08/02/2018 to 08/04/2018. At that time, she was treated for left perinephric hematoma. At this time however because of her shortness of breath symptoms, she decided to come into the ER. When she came in to the ER today, she was found with a temperature of 100.6 and chest x-ray showed in the ER evaluation today showed double lumen right venous catheter access, stable position with the tip projecting into the right atrium, persistent mild cardiomegaly with pulmonary vasculature mildly, but less congested improving, diffuse bilateral now largely interstitial infiltrate suspicious for improving pulmonary edema. No effusion is present and there is serpiginous calcific density again projects into the left upper abdomen, which previous CT appears to represent embolic material within the left renal artery. So overall, there were signs of possible upper respiratory infection and she received broad-spectrum antibiotics in the ER today along with a breathing treatment and IV fluid bolus per family. Her last dialysis was as an outpatient 24 hours ago. Hospital Course The patient was admitted. She was placed on broad-spectrum antibiotics. She was previously seen by renal team as well. Patient was recommended to have a dialysis session on the day of admission, however she refused this because she had gotten a dialysis session the day before admission. In any event her labs were monitored including her CBC and basic metabolic panel. Her creatinine was at baseline levels for her which is in the high to low 3 range. Regarding her upper respiratory infection, this improved with IV antibiotics. Her fever sub sided. She was able to ambulate, tolerate p.o. diet. Her white blood cell count was normal as well. She will be discharged home today improved condition. She will need 7 more days of antibiotics to complete the treatment of upper respiratory infection. She will continue dialysis as an outpatient regularly scheduled. See below for full list of discharge medications. Home Meds Active Scripts Levofloxacin* (Levaquin*) 750 Mg Tablet, 750 MG PO DAILY for 7 Days, #7 TAB Prov:LAURA SOTO S. 08/09/18 Reported Medications Folic Acid/Vitamin B Comp W-C (Renal Multivitamin Tablet) 0.8 Mg Tablet, 0.8 MG PO, TAB 06/16/18 Metoprolol Tartrate* (Lopressor*) 25 Mg Tab, 25 MG PO BID, #60 TAB 06/16/18 Famotidine* (Famotidine*) 40 Mg Tablet, 20 MG PO HS, #30 TAB 06/16/18 Atorvastatin* (Atorvastatin*) 40 Mg Tablet, 40 MG PO QHS, #30 TAB 06/16/18 Amiodarone Hcl* (Amiodarone Hcl*) 100 Mg Tablet, 100 MG PO DAILY, #30 TAB 06/16/18 Ondansetron Hcl* (Zofran*) 4 Mg Tab, 4 MG PO Q6H PRN for NAUSEA AND OR VOMITING, TAB 06/16/18 Acetaminophen (PAIN RELIEF) 650 Mg Tablet.er, 650 MG PO Q4 PRN for PAIN, TAB 06/16/18 Discontinued Reported Medications 1/2 Normal Saline (Sodium Chloride) 250 Ml Iv.soln, 100 ML IV PRN for Dialysis- PRN 06/16/18 Heparin Sodium,Porcine/Pf (HEPARIN SOD 5,000 UNIT/ 0.5 ML) 5,000 Unit/0.5 Ml Vial, 1000 UNIT IJ AFTER DIALYSIS PRN for dialysis-PRN, VIAL 06/16/18 Follow-up Plan Please take your medications as prescribed. Please see your doctor in the clinic in the next 1 week. Primary Care Provider Maria Fernanda Jason Time spent on discharge: > 30 minutes Pending Labs Laboratory Tests Test 08/08/18 13:13 08/08/18 13:15 08/08/18 16:00 08/08/18 17:34 White Blood 10.1 Count 10^3/ul (4.8-10 .8) Red Blood 2.94 Count 10^6/ul (4.20-5 .40) Hemoglobin 8.7 g/dl (12.0-16.0 ) Hematocrit 28.0 % (37.0-47.0) Mean 95.2 Corpuscular fl (82.0-101.0) Volume Mean 29.6 Corpuscular pg (29.0-33.0) Hemoglobin Mean 31.1 Corpuscular g/dl (32.0-37.0 Hemoglobin Conc ) ent Red Cell 19.6 Distribution % (11.5-14.5) Width Platelet Count 189 10^3/UL (140-41 5) Mean Platelet 9.3 Volume fl (7.4-10.4) Immature 0.400 Granulocytes % % (0.001-0.429) Neutrophils % 54.5 % (39.0-77.0) Lymphocytes % 34.0 % (15.0-51.0) Monocytes % 9.8 % (0.0-11.0) Eosinophils % 0.9 % (0.0-7.0) Basophils % 0.4 % (0.0-2.0) Nucleated Red 0.2 Blood Cells % /100WBC (0.0-0. 0) Immature 0.040 Granulocytes # 10^3/ul (0.0-0. 031) Neutrophils # 5.5 10^3/ul (1.6-7. 5) Lymphocytes # 3.4 10^3/ul (0.8-2. 9) Monocytes # 1.0 10^3/ul (0.3-0. 9) Eosinophils # 0.1 10^3/ul (0.0-0. 5) Basophils # 0.0 10^3/ul (0.0-0. 1) Nucleated Red 0.0 Blood Cells # 10^3/ul (0.0-0. 0) Prothrombin 14.5 Time Sec (11.9-14.9) Prothrombin 1.1 Time Ratio INR 1.12 International Normalized Rati o Activated 33.2 Partial Thrombo Sec (23.0-35.0) plast Time Sodium Level 137 mmol/L (135-144 ) Potassium 4.6 Level mmol/L (3.5-5.1 ) Chloride Level 97 mmol/L (97-110) Carbon Dioxide 29 Level mmol/L (21-31) Anion Gap 11 (5-13) Blood Urea 36 mg/dl (7-20) Nitrogen Creatinine 2.85 mg/dl (0.44-1.0 0) Est Glomerular 17 mL/min (>60) Filtrat Rate mL/min Glucose Level 110 mg/dl (70-220) Calcium Level 8.7 mg/dl (8.4-10.2 ) Total 0.4 Bilirubin mg/dl (0.2-1.3) Direct 0.00 Bilirubin mg/dl (0.00-0.2 0) Indirect 0.4 Bilirubin mg/dl (0-1.1) Aspartate Amino 35 IU/L (15-46) Transf (AST/SGO T) Alanine 10 IU/L (13-69) Aminotransferas e (ALT/SGPT) Alkaline 143 Phosphatase IU/L (42-121) Troponin I 0.089 ng/ml (0.000-0. 120) Total Protein 7.9 g/dl (6.1-8.1) Albumin 3.5 g/dl (3.3-4.9) Globulin 4.40 g/dl (1.3-3.2) Albumin/Globuli 0.79 n Ratio Lipase 327 U/L (23-300) Free Thyroxine 2.19 ng/dl (0.78-2.4 4) POC Venous 0.9 Lactate mmol/L (0.5-2. 0) Lactic Acid 3.0 1.9 Level mmol/L (0.5-2. mmol/L (0.5-2. 0) 0) Test 08/08/18 22:08 08/09/18 05:00 08/09/18 05:20 08/09/18 09:52 Lactic Acid 0.9 1.0 1.9 Level mmol/L (0.5-2.0 mmol/L (0.5-2. mmol/L (0.5-2. ) 0) 0) White Blood 6.0 Count 10^3/ul (4.8-1 0.8) Red Blood 2.81 Count 10^6/ul (4.20- 5.40) Hemoglobin 8.2 g/dl (12.0-16. 0) Hematocrit 27.0 % (37.0-47.0) Mean 96.1 Corpuscular fl (82.0-101.0 Volume ) Mean 29.2 Corpuscular pg (29.0-33.0) Hemoglobin Mean 30.4 Corpuscular g/dl (32.0-37. Hemoglobin Conc 0) ent Red Cell 19.5 Distribution % (11.5-14.5) Width Platelet Count 155 10^3/UL (140-4 15) Mean Platelet 9.6 Volume fl (7.4-10.4) Immature 0.700 Granulocytes % % (0.001-0.429 ) Neutrophils % 69.2 % (39.0-77.0) Lymphocytes % 19.1 % (15.0-51.0) Monocytes % 7.6 % (0.0-11.0) Eosinophils % 3.2 % (0.0-7.0) Basophils % 0.2 % (0.0-2.0) Nucleated Red 0.0 Blood Cells % /100WBC (0.0-0 .0) Immature 0.040 Granulocytes # 10^3/ul (0.0-0 .031) Neutrophils # 4.2 10^3/ul (1.6-7 .5) Lymphocytes # 1.2 10^3/ul (0.8-2 .9) Monocytes # 0.5 10^3/ul (0.3-0 .9) Eosinophils # 0.2 10^3/ul (0.0-0 .5) Basophils # 0.0 10^3/ul (0.0-0 .1) Nucleated Red 0.0 Blood Cells # 10^3/ul (0.0-0 .0) Sodium Level 138 mmol/L (135-14 4) Potassium 5.1 Level mmol/L (3.5-5. 1) Chloride Level 98 mmol/L (97-110 ) Carbon Dioxide 29 Level mmol/L (21-31) Anion Gap 11 (5-13) Blood Urea 52 Nitrogen mg/dl (7-20) Creatinine 3.45 mg/dl (0.44-1. 00) Est Glomerular 13 Filtrat mL/min (>60) Rate mL/min Glucose Level 96 mg/dl (70-220) Hemoglobin A1c 5.0 % (0-5.9) Calcium Level 8.3 mg/dl (8.4-10. 2) Phosphorus 6.2 Level mg/dl (2.5-4.9 ) Magnesium 2.1 Level mg/dl (1.7-2.5 ) Triglycerides 59 Level mg/dl (0-149) Cholesterol 96 Level mg/dl (100-200 ) LDL 52 mg/dl Cholesterol, Calculated HDL 32 Cholesterol mg/dl (35-98) Cholesterol/HDL 3.0 RATIO Ratio Thyroid 1.090 Stimulating MIU/L (0.465-4 Hormone (TSH) .680) Microbiology Date/Time Source Procedure Growth Status 08/08/18 15:30 Antonioes MRSA Screen - Preliminary Screening in process Resulted LAURA SOTO Aug 09, 2018 12:50
[2018-08-09] MEDS ORDERED: CEPASTAT LOZENGE MT PRN (13:00)
--- NOTE | 2018-08-09 13:08 | CONS ---
Date/Time of Note Date/Time of Note DATE: 08/09/18 TIME: 13:08 Assessment/Plan Assessment/Plan Assessment/Plan 1. Shortness of breath and fever: 2. ESRD on HD MWF schedule 3. H/o Atrial fibrillation 4. H/o HTN 5. H/o CHF 6. H/o HL 7. H/o Previous CVA Plan: more stable today, no need for HD today, if pt stays here, we will order HD for tomorrow otherwise ok to d/c home IV abx zosyn + azithromycin will keep pt on MWF dialysis schedule will follow up Result Diagram: 08/09/1851908/09/18 0520 Results 24hrs Laboratory Tests Test 08/08/18 13:13 08/08/18 13:15 08/08/18 16:00 08/08/18 17:34 White Blood 10.1 Count Red Blood Count 2.94 L Hemoglobin 8.7 L Hematocrit 28.0 L Mean Corpuscular 95.2 Volume Mean Corpuscular 29.6 Hemoglobin Mean Corpuscular 31.1 L Hemoglobin Rakel nt Red Cell 19.6 H Distribution Width Platelet Count 189 # Mean Platelet 9.3 Volume Immature 0.400 Granulocytes % Neutrophils % 54.5 Lymphocytes % 34.0 Monocytes % 9.8 Eosinophils % 0.9 Basophils % 0.4 Nucleated Red 0.2 H Blood Cells % Immature 0.040 H Granulocytes # Neutrophils # 5.5 Lymphocytes # 3.4 H Monocytes # 1.0 H Eosinophils # 0.1 Basophils # 0.0 Nucleated Red 0.0 Blood Cells # Prothrombin Time 14.5 Prothrombin Time 1.1 Ratio INR 1.12 International Normalized Ratio Activated 33.2 Partial Thrombop last Time Sodium Level 137 Potassium Level 4.6 Chloride Level 97 Carbon Dioxide 29 Level Anion Gap 11 Blood Urea 36 H Nitrogen Creatinine 2.85 H Est Glomerular 17 L Filtrat Rate mL/min Glucose Level 110 Calcium Level 8.7 Total Bilirubin 0.4 Direct Bilirubin 0.00 Indirect 0.4 Bilirubin Aspartate Amino 35 Transf (AST/SGOT ) Alanine 10 L Aminotransferase (ALT/SGPT) Alkaline 143 H Phosphatase Troponin I 0.089 Total Protein 7.9 Albumin 3.5 Globulin 4.40 H Albumin/Globulin 0.79 Ratio Lipase 327 H Free Thyroxine 2.19 POC Venous 0.9 Lactate Lactic Acid 3.0 *H 1.9 Level Test 08/08/18 22:08 08/09/18 05:00 08/09/18 05:20 08/09/18 09:52 Lactic Acid 0.9 1.0 1.9 Level White Blood 6.0 # Count Red Blood Count 2.81 L Hemoglobin 8.2 L Hematocrit 27.0 L Mean Corpuscular 96.1 Volume Mean Corpuscular 29.2 Hemoglobin Mean Corpuscular 30.4 L Hemoglobin Rakel nt Red Cell 19.5 H Distribution Width Platelet Count 155 Mean Platelet 9.6 Volume Immature 0.700 H Granulocytes % Neutrophils % 69.2 Lymphocytes % 19.1 Monocytes % 7.6 Eosinophils % 3.2 Basophils % 0.2 Nucleated Red 0.0 Blood Cells % Immature 0.040 H Granulocytes # Neutrophils # 4.2 Lymphocytes # 1.2 Monocytes # 0.5 Eosinophils # 0.2 Basophils # 0.0 Nucleated Red 0.0 Blood Cells # Sodium Level 138 Potassium Level 5.1 Chloride Level 98 Carbon Dioxide 29 Level Anion Gap 11 Blood Urea 52 H Nitrogen Creatinine 3.45 H Est Glomerular 13 L Filtrat Rate mL/min Glucose Level 96 Hemoglobin A1c 5.0 Calcium Level 8.3 L Phosphorus Level 6.2 H Magnesium Level 2.1 Triglycerides 59 Level Cholesterol 96 L Level LDL Cholesterol, 52 Calculated HDL Cholesterol 32 L Cholesterol/HDL 3.0 Ratio Thyroid 1.090 Stimulating Hormone (TSH) Consultation Date/Type/Reason Admit Date/Time Aug 08, 2018 at 14:25 Initial Consult Date 08/08/18 Type of Consult NEPHROLOGY Requesting Provider: LAURA SOTO Exam/Review of Systems Vital Signs Vitals Vital Signs Date Temp Pulse Resp B/P (MAP) Pulse Ox O2 O2 Flow FiO2 Time Delivery Rate 08/09/18 98.6 82 107/59 100 Room Air 12:47 (75) 08/09/18 18 12:37 08/09/18 2.0 09:42 08/08/18 21 12:44 Intake and Output 08/08/18 08/08/18 08/09/18 1414:59 22:59 06:59 IntakeIntake Total 550 ml 700 ml BalanceBalance 550 ml 700 ml Medications Medications Current Medications IV Flush (NS 3 ml) 3 ml PER PROTOCOL IV ; Start 08/08/18 at 14:30 Ondansetron HCl (Zofran Inj) 4 mg Q6H PRN IV NAUSEA AND/OR VOMITING; Start 08/08/18 at 14:30 Acetaminophen (Tylenol Tab) 650 mg Q6H PRN PO PAIN LEVEL 1-3 OR FEVER; Start 08/08/18 at 14:30 Acetaminophen/ Hydrocodone Bitart ([place] (5/325)) 1 tab Q6H PRN PO MODERATE PAIN LEVEL 4-6; Start 08/08/18 at 14:30 Morphine Sulfate (morphine) 2 mg Q4H PRN IV SEVERE PAIN LEVEL 7-10; Start at 14:30 Docusate Sodium (Colace) 100 mg Q12H PRN PO CONSTIPATION; Start 08/08/18 at 14:30 Magnesium Hydroxide (Milk Of Mag) 30 ml DAILY PRN PO CONSTIPATION; Start 08/08/18 at 14:30 Lorazepam (Ativan) 0.5 mg Q6H PRN IV ANXIETY; Start 08/08/18 at 14:30 Albuterol/ Ipratropium (Duoneb) 3 ml Q4H RESP THERAPY PRN HHN SHORTNESS OF BREATH Last administered on 08/09/18at 09:37; Admin Dose 3 ML; Start 08/08/18 at 14:30 Hydralazine HCl (Apresoline) 10 mg Q6H PRN IV ELEVATED BLOOD PRESSURE; Start 08/08/18 at 14:30 Clonidine (Catapres) 0.1 mg Q6H PRN PO ELEVATED BLOOD PRESSURE; Start 08/08/18 at 14:30 Nitroglycerin (Nitroglycerin (Sl Tab) 0.4 Mg) 1 tab Q5M PRN SL ANGINA; Start 08/08/18 at 14:30 Amiodarone HCl (Cordarone) 100 mg DAILY PO Last administered on 08/09/18at 08:54; Admin Dose 100 MG; Start 08/09/18 at 09:00 Atorvastatin Calcium (Lipitor) 40 mg QHS PO Last administered on 08/08/18at 20:32; Admin Dose 40 MG; Start 08/08/18 at 21:00 Famotidine (Pepcid) 20 mg HS PO Last administered on 08/08/18at 20:32; Admin Dose 20 MG; Start 08/08/18 at 21:00 Metoprolol Tartrate (Lopressor) 25 mg BID PO ; Start 08/08/18 at 21:00 Heparin Sodium (Porcine) (Heparin (1000 Units/ml)) 4,000 unit AFTER DIALYSIS CATHETER ; Start 08/08/18 at 15:00 Albumin Human 50 ml @ 100 mls/hr WITH DIALYSIS PRN IV for SBP less than 90 mm hg ; Start 08/08/18 at 15:00 Sodium Chloride (NS) -To prime the dialy... DIRECTED FOR HD PRN IV SBP less than 90 mm Hg ; Start 08/08/18 at 15:00 Piperacillin Sod/ Tazobactam Sod 100 ml @ 25 mls/hr Q12H IVPB Last administered on 08/09/18at 04:13; Admin Dose 25 MLS/HR; Start 08/08/18 at 15:00 Phenol (Cepastat Lozenge) 1 lozenge Q1H PRN MT COUGH; Start 08/09/18 at 13:00 GEORGIE OMER MD Aug 09, 2018 13:08
--- NOTE | 2018-08-10 09:42 | EN ---
Date/Time of Note Date/Time of Note DATE: 08/10/18 TIME: 09:41 Event Note Medicine Medicine Event Note Patient blood culture results shows 1 out of 2 bottles gram-positive cocci in clusters. No specific bacteria has been identified yet. Patient did go home with Levaquin to treat an upper respiratory infection. This is most likely a contaminant, however we will try to reach out to patient and let them know the results, thanks. LAURA SOTO Aug 10, 2018 09:42
== END 2018-08-09 15:00 | disposition home or self-care (01) | DRG 152 ==
LOC: E/R 11:17 → TEL 14:25
PROVIDERS: ADMIT Hospitalist; ATTEND Hospitalist
DX: J06.9 Acute upper respiratory infection, unspecified (principal); J18.9 Pneumonia, unspecified organism; N18.6 End stage renal disease; I13.2 Hypertensive heart and chronic kidney disease with heart failure and with stage 5 chronic kidney disease, or end stage renal disease; I48.91 Unspecified atrial fibrillation; Z86.73 Personal history of transient ischemic attack (TIA), and cerebral infarction without residual deficits; Z99.2 Dependence on renal dialysis
CPT/HCPCS: 36415; 36600; 71045; 80048; 80053; 80061; 82803; 83036; 83605; 83690; 83735; 84100; 84439; 84443; 84484; 85025; 85610; 85730; 87040; 87081; 93005; 94640; 94644; 96374; J0456; J0692; J2543; J7030